=== PATIENT | female | born 1930 | race Caucasian/White ===

== ENCOUNTER 2017-10-23 17:56 | Observation (INO) ==
--- NOTE | 2017-10-23 18:47 | ED ---
HPI General Chief complaint: Weakness Stated complaint: weakness,confusion,nausea Time Seen by Provider: 10/23/17 18:35 Source: patient Mode of arrival: ambulatory Limitations: no limitations History of Present Illness HPI narrative: 87yo F with PMH of COPD on home O2 presents to the ED from Assisted living for generalized weakness since yesterday. Malena'ts friend who is the power of commercial real estate attorney also she she is more confused today. For example, pt called downstairs to order food and then called again and forgot she called. Said she walks with a walker and today felt too weak to walk. Denies any fever , headache, visual changes, chest pain, sob, n/v, abdominal pain, focal weakness or numbness. Related Data Home Medications Medication Instructions Recorded Confirmed albuterol sulfate [Ventolin HFA] 2 puff INHALATION Q4-6H PRN 10/23/17 10/23/17 amlodipine 5 mg PO DAILY 10/23/17 10/23/17 aspirin [Aspir-81] 81 mg PO DAILY 10/23/17 10/23/17 escitalopram oxalate [Lexapro] 10 mg PO DAILY 10/23/17 10/23/17 fluticasone furoate 2 inh INHALATION DAILY 10/23/17 10/23/17 lisinopril 10 mg PO DAILY 10/23/17 10/23/17 potassium chloride 10 10/23/17 torsemide 20 mg PO DAILY 10/23/17 10/23/17 Allergies Allergy/AdvReac Type Severity Reaction Status Date / Time clarithromycin Allergy Severe unknown Verified 10/23/17 18:06 codeine Allergy Severe unknown Verified 10/23/17 18:06 acetaminophen Allergy Unknown unknown Verified 10/23/17 18:06 cilostazol Allergy Unknown uknown Verified 10/23/17 18:06 enalaprilat Allergy Unknown unknown Verified 10/23/17 18:06 hydrocodone Allergy Unknown unknown Verified 10/23/17 18:06 propoxyphene Allergy Unknown unknown Verified 10/23/17 18:06 tramadol Allergy Unknown unknown Verified 10/23/17 18:06 Review of Systems ROS: all other systems reviewed are negative [facility] Medical History Medical History CAD (coronary artery disease) (Acute) COPD (chronic obstructive pulmonary disease) (Acute) High cholesterol (Acute) Hypertension (Acute) PVD (peripheral vascular disease) (Acute) Social History Social History Substance History: No History of Abuse Second Hand Smoke Exposure: No Smoking Status: Former smoker How Often Do You Have a Drink Containing Alcohol: Never Exam Narrative Exam Narrative: GENERAL: 87yo F in mild distress. SKIN: Focused skin assessment warm/dry. HEAD: Atraumatic. Normocephalic. EYES: Pupils equal and round. EOMI. ENT: No nasal bleeding or discharge. Mucous membranes pink and moist. NECK: Trachea midline. No JVD. CARDIOVASCULAR: Regular rate and rhythm. No murmur appreciated. RESPIRATORY: No accessory muscle use. Clear to auscultation. Breath sounds equal bilaterally. GASTROINTESTINAL: Abdomen soft, non-tender, nondistended. MUSCULOSKELETAL: No obvious deformities. No clubbing. No cyanosis. No edema. NEUROLOGICAL: Awake and alert. No obvious cranial nerve deficits. Motor grossly within normal limits in all extremities. Normal speech. PSYCHIATRIC: Appropriate mood and affect; insight and judgment normal. Course Initial Documented Vital Signs Temperature 99.5 F 10/23/17 18:06 Pulse Rate 74 10/23/17 18:06 Respiratory Rate 18 10/23/17 18:06 Blood Pressure 137/64 10/23/17 18:06 Pulse Oximetry 94 L 10/23/17 18:06 Last Documented Vital Signs Temperature 99.6 F 10/23/17 21:54 Pulse Rate 88 10/23/17 23:04 Respiratory Rate 18 10/23/17 23:04 Blood Pressure 178/85 H 10/23/17 23:04 Pulse Oximetry 96 10/23/17 23:04 Medical Decision Making [facility] Narrative Medical decision making narrative: 87yo F with c/o generalized weakness since yesterday. Labs reviewed, no leukocytosis. H/H normal. Troponin negative. BUN mildly elevated at 20. BUN/creatinine ratio is about 2:1 and pt likely dehydrated so given 500cc of NS IVF. CT brain showed aging brain with ventriculomegaly and chronic ischemic white matter disease causing central atrophy. No evidence of acute infarct, hemorrhage, mass or edema. UA showed trace ketones. Negative leukocyte, negative nitrate. Pt is unable to stand up unassisted and lives in the apartment side of the assisted living facility in [place] so will observe her overnight and have physical therapy evaluate patient. Discussed with Dr. Melendez and accepted to his service. Differential Diagnosis Differential Diagnosis: Dehydration vs. UTI vs. delirium vs. dementia Lab Data Result diagrams: 10/23/17 19:35 10/23/17 19:35 Lab Results 10/23/17 10/23/17 10/23/17 Range/Units 19:35 19:35 21:50 CBC w Diff Auto diff final WBC 10.8 (4.0-11.0) th/mm3 RBC 4.31 (4.00-5.30) mil/mm3 Hgb 13.2 (11.6-15.3) gm/dL Hct 39.1 (35.0-46.0) % MCV 90.7 (80.0-100.0) fL MCH 30.6 (27.0-34.0) pg MCHC 33.7 (32.0-36.0) % RDW 13.9 (11.6-17.2) % Plt Count 226 (150-450) th/mm3 MPV 8.1 (7.0-11.0) fL Neut % (Auto) 78.6 H (16.0-70.0) % Lymph % (Auto) 9.6 (9.0-44.0) % Harney % (Auto) 8.2 H (0.0-8.0) % Eos % (Auto) 0.7 (0.0-4.0) % Baso % (Auto) 2.9 H (0.0-2.0) % Neut # (Auto) 8.5 H (1.8-7.7) th/mm3 Lymph # (Auto) 1.0 (1.0-4.8) th/mm3 Harney # (Auto) 0.9 (0.0-0.9) th/mm3 Eos # (Auto) 0.1 (0.0-0.4) th/mm3 Baso # (Auto) 0.3 H (0.0-0.2) th/mm3 WBC Differential . Differential Comment . Sodium 138 (136-145) meq/L Potassium 3.7 (3.5-5.1) meq/L Chloride 102 (98-107) meq/L Carbon Dioxide 29.4 (21.0-32.0) meq/L Anion Gap 7 (5-15) meq/L BUN 20 H (7-18) mg/dL Creatinine 0.92 (0.50-1.00) mg/dL Estimated GFR 58 L (>89) mL/min Random Glucose 103 (74-106) mg/dL Calcium 8.4 L (8.5-10.1) mg/dL Magnesium 2.1 (1.5-2.5) mg/dL Total Bilirubin 0.9 (0.2-1.0) mg/dL AST 16 (15-37) U/L ALT 19 (10-53) U/L Alkaline Phosphatase 112 (45-117) U/L Troponin I Less than 0.02 L (0.02-0.05) ng/mL Total Protein 6.6 (6.4-8.2) g/dL Albumin 3.6 (3.4-5.0) g/dL Urine Color Yellow (Yellw/Straw) Urine Clarity Clear (Clear) Urine pH 5.5 (5.0-8.5) Ur Specific Kelford 1.010 (1.002-1.035) Urine Protein Negative (Neg-Trace) mg/dL Urine Glucose (UA) Negative (Negative) mg/dL Urine Ketones Trace H (Negative) mg/dL Urine Occult Blood Trace (Negative) Urine Nitrate Negative (Negative) Urine Bilirubin Negative (Negative) Urine Urobilinogen 0.2 (Less than 2) mg/dL Ur Leukocyte Esterase Negative (Negative) Urine RBC 0-3 (0-3) /hpf Urine WBC 0-5 (0-5) /hpf Ur Squamous Epith Cells 0-5 (0-5) /hpf Micro UA Comment Cath-culture not ind Urine Culture Comments Cath-cult not ind Imaging Data Radiologist's impression: Head CT 10/23/17 18:44 CONCLUSION: 1. Aging brain with ventriculomegaly and chronic ischemic white matter disease causing central atrophy 2. No evidence of acute infarct, hemorrhage, mass or edema. . ECG Data EKG Prior to Arrival: No Attestation: I personally reviewed and interpreted this ECG as follows: Interpretation: NSR 86bpm. LAD. No significant ST elevation or depression. Discharge Plan Discharge Disposition Patient Disposition: 30 Still Patient Physicians Team ED Provider: Bonnie Morales Primary Care Provider: Laurence Gillespie Attending Provider: lAan Melendez Status ED Status: Admitted Observation Patient
[2017-10-23 19:48] LABS: Baso # (Auto) 0.3 th/mm3 (0.0-0.2); Baso % (Auto) 2.9 % (0.0-2.0); Eos # (Auto) 0.1 th/mm3 (0.0-0.4); Eos % (Auto) 0.7 % (0.0-4.0); Hematocrit 39.1 % (35.0-46.0); Hemoglobin 13.2 gm/dL (11.6-15.3); Lymph % (Auto) 9.6 % (9.0-44.0); Mean Corpuscular HGB Conc 33.7 % (32.0-36.0); Mean Corpuscular Hemoglobin 30.6 pg (27.0-34.0); Mean Corpuscular Volume 90.7 fL (80.0-100.0); Mean Platelet Volume 8.1 fL (7.0-11.0); Mono # (Auto) 0.9 th/mm3 (0.0-0.9); Mono % (Auto) 8.2 % (0.0-8.0); Neut # (Auto) 8.5 th/mm3 (1.8-7.7); Neut % (Auto) 78.6 % (16.0-70.0); Platelet Count 226 th/mm3 (150-450); Red Blood Count 4.31 mil/mm3 (4.00-5.30); Red Cell Distribution Width 13.9 % (11.6-17.2); White Blood Count 10.8 th/mm3 (4.0-11.0)
[2017-10-23 19:52] LABS: Chloride 102 meq/L (98-107); Potassium 3.7 meq/L (3.5-5.1); Sodium 138 meq/L (136-145)
[2017-10-23 19:56] LABS: Albumin 3.6 g/dL (3.4-5.0); Anion Gap 7 meq/L (5-15); Blood Urea Nitrogen 20 mg/dL (7-18); Calcium 8.4 mg/dL (8.5-10.1); Carbon Dioxide 29.4 meq/L (21.0-32.0); Glucose,Random 103 mg/dL (74-106); Magnesium 2.1 mg/dL (1.5-2.5)
[2017-10-23 19:59] LABS: Alanine Aminotransferase 19 U/L (10-53); Aspartate Aminotransferase 16 U/L (15-37); Glomerular Filtration Rate 58 mL/min (>89)
[2017-10-23 20:01] LABS: Total Protein 6.6 g/dL (6.4-8.2)
[2017-10-23 20:02] LABS: Alkaline Phosphatase 112 U/L (45-117)
[2017-10-23] MEDS ORDERED: Sodium Chlor 0.9% Inj 500 ML IV.SIG ONE (20:02)
--- NOTE | 2017-10-23 20:15 | CT ---
EXAM DATE: 10/23/2017 8:10 PM EDT AGE/SEX: 87 years / Female INDICATIONS: Weakness, confusion, nausea. CLINICAL DATA: This is the patient's initial encounter. Patient reports that signs and symptoms have been present for 1 day and indicates a pain score of 0/10. MEDICAL/SURGICAL HISTORY: Chronic obstructive pulmonary disease. Cardiovascular disease. Hyperten veronika. High cholesterol, peripheral vascular disease. . RADIATION DOSE: 50.61 CTDI (mGy) COMPARISON: No prior exams available for comparison. TECHNIQUE: CT of the head without contrast. Using automated exposure control and adjustment of the mA and/or kV according to patient size, radiation dose was kept as low as reasonably achievable to ob tain optimal diagnostic quality images. DICOM format image data is available electronically for revi ew and comparison. FINDINGS: Cerebrum: Moderate enlargement of the ventricles is noted. There is diffuse generalized periventricu lar white matter hypodensity. Calcified plaque is identified internal carotid artery siphons. No evid ence of midline shift, mass lesion, hemorrhage or acute infarction. No extraaxial fluid collections are seen. Posterior Fossa: The cerebellum and brainstem are intact. The 4th ventricle is midline. The cerebe llopontine angle is unremarkable. Extracranial: The visualized portion of the orbits is intact. Skull: The calvaria is intact. No evidence of skull fracture. CONCLUSION: 1. Aging brain with ventriculomegaly and chronic ischemic white matter disease causing central atrop hy 2. No evidence of acute infarct, hemorrhage, mass or edema. . Electronically signed by: Herbert Hutson MD 10/23/2017 8:14 PM EDT
[2017-10-23 21:57] LABS: Bilirubin,Urine Negative (Negative); Clarity,Urine Clear (Clear); Color,Urine Yellow (Yellw/Straw); Glucose,Urine (UA) Negative (Negative); Leukocyte Esterase,Urine Negative (Negative); Nitrite,Urine Negative (Negative); PH,Urine 5.5 (5.0-8.5); Urobilinogen,Urine 0.2 mg/dL (Less than 2)
[2017-10-23 22:02] LABS: RBC,Urine 0-3 /hpf (0-3); Squamous Epithelial Cell,Urine 0-5 /hpf (0-5); WBC,Urine 0-5 /hpf (0-5)
[2017-10-23] MEDS ORDERED: Sod Chloride 0.9% Inj 1,000 ML IV.CONT SCH (22:45)
--- NOTE | 2017-10-24 06:14 | P.HP ---
History of Present Illness Service: [facility] Adult med Primary Care Physician: Laurence Gillespie MD Chief Complaint: weakness, confusion History of Present Illness: 87yo F with PMH of COPD on home O2 at 2 L per n/c presents to the ED from Assisted living for generalized weakness since yesterday. Patient's friend who is also the power of broodmare foreman reports that pt was a bit more confused as well. For example, pt called downstairs to order food and then called again and forgot she called. Said she walks with a walker and today felt too weak to walk. Denies any fever, headache, visual changes, chest pain, sob, n/v, abdominal pain, focal weakness or numbness. ER workup negative for focal etiology contributing to her weakness. Her mentation seems a bit better this AM on exam and near her baseline. I am familiar with pt from previous admission a few years ago. SH Patient resides in a local [facility] in the [facility] She is originally from [place] but moved to the area in the 1949s with her . No tobacco use since 1979 but prior to that smoked a pack per day for approximately 40 years. Has not drank any alcohol in many years. - Diagnosis (1) Weakness (2) COPD (chronic obstructive pulmonary disease) (3) Confusion (4) Hypertension [facility] - History History Provided By: Patient - Medical History Medical History: Medical History (Last Updated 10/24/17 @ 06:07 by lAan Melendez MD, PhD) CAD (coronary artery disease) COPD (chronic obstructive pulmonary disease) H/O: hysterectomy High cholesterol Hypertension PVD (peripheral vascular disease) - Surgical History Surgical History: Surgical History (Last Updated 10/24/17 @ 06:07 by Alan Melendez MD, PhD) History of PTCA History of appendectomy History of tonsillectomy Hx of cataract surgery Hx of cholecystectomy - Family History Family History: Family History (Last Updated 10/24/17 @ 06:07 by Alan Melendez MD, PhD) Other Family history non-contributory - Tobacco History Second Hand Smoke Exposure: No Smoking Status: Former smoker Tobacco Type: Cigarettes Packs Per Day: 1 Years Smoked: 40 Smoking End Date: 1979 - Alcohol History How Often Do You Have a Drink Containing Alcohol: Never - Substance Use History Substance History: No History of Abuse - Travel History Recent Travel in the [place] Within the Last 8 Weeks: No Recent Travel Out of the Country Within the Last 8 Weeks: No - Immunization History Tetanus Immunization: Unable to Assess Hx Influenza Vaccine This Season: Yes Medications and Allergies Active Medications: Active Medications Albuterol (Duoneb Neb (Prn)) 1 ampul NEB Q4HR NEB PRN PRN Reason: wheeze, sob Amlodipine Besylate (Norvasc) 5 mg PO DAILY WIN Aspirin (Ecotrin) 81 mg PO DAILY WIN Escitalopram Oxalate (Lexapro) 10 mg PO DAILY WIN Fluticasone Propionate (Flonase Nasal [place]) 2 spray NASAL DAILY WIN Sodium Chloride (Ns Inj) 1,000 mls @ 75 mls/hr IV.CONT .[id number] WIN Last Admin: 10/24/17 01:25 Dose: 75 mls/hr Sodium Chloride (Ns Flush) 2 ml IV.FLUSH PRN PRN PRN Reason: FLUSH AFTER USING IV ACCESS Allergies Allergy/AdvReac Type Severity Reaction Status Date / Time clarithromycin Allergy Severe unknown Verified 10/23/17 18:06 codeine Allergy Severe unknown Verified 10/23/17 18:06 acetaminophen Allergy Unknown unknown Verified 10/23/17 18:06 cilostazol Allergy Unknown uknown Verified 10/23/17 18:06 enalaprilat Allergy Unknown unknown Verified 10/23/17 18:06 hydrocodone Allergy Unknown unknown Verified 10/23/17 18:06 propoxyphene Allergy Unknown unknown Verified 10/23/17 18:06 tramadol Allergy Unknown unknown Verified 10/23/17 18:06 Home Medications Medication Instructions Recorded Confirmed Type albuterol sulfate [Ventolin HFA] 2 puff INHALATION Q4-6H PRN 10/23/17 10/23/17 History amlodipine 5 mg PO DAILY 10/23/17 10/23/17 History aspirin [Aspir-81] 81 mg PO DAILY 10/23/17 10/23/17 History escitalopram oxalate [Lexapro] 10 mg PO DAILY 10/23/17 10/23/17 History fluticasone furoate 2 inh INHALATION DAILY 10/23/17 10/23/17 History lisinopril 10 mg PO DAILY 10/23/17 10/23/17 History potassium chloride 10 10/23/17 History torsemide 20 mg PO DAILY 10/23/17 10/23/17 History Exam Vital signs: Vital Signs 10/23/17 18:06 10/23/17 18:50 10/23/17 21:54 Temperature 99.5 F 99.6 F Pulse Rate 74 68 80 Respiratory Rate 18 22 Blood Pressure 137/64 188/68 H Pulse Oximetry 94 L 94 L 95 10/23/17 22:15 10/23/17 22:33 10/23/17 23:04 Temperature Pulse Rate 72 88 Respiratory Rate 20 18 Blood Pressure 178/85 H Pulse Oximetry 95 96 96 10/24/17 00:15 Temperature 98.9 F Pulse Rate 74 Respiratory Rate 20 Blood Pressure 129/66 Pulse Oximetry 93 L Intake & Output 10/23/17 10/23/17 10/24/17 06:59 18:59 06:59 Intake Total 500 / 500 Output Total 200 / 200 Balance 300 / 300 Weight 72 kg 72 kg Intake: IV 500 / 500 NS Inj 500 ML @ Wide Open IV. 500 / 500 SIG BOLUS ONE Rx#:[id number] Output: Urine 200 / 200 Other: Date of Last Bowel Movement 10/23/17 Weight On Admission 78 kg Narrative: GENERAL: sleeping, arouses to voice. She is a bit groggy but is able to answer questions. She knows that she is in the hospital but is not sure which one. SKIN: Warm and dry. Purpuric lesions on forearms. HEAD: Atraumatic. Normocephalic. EYES: Pupils equal and round. No scleral icterus. No injection or drainage. ENT: No nasal bleeding or discharge. Mucous membranes pink and moist. NECK: Trachea midline. No JVD. CARDIOVASCULAR: Regular rate and rhythm. Distant heart sounds but no significant murmur appreciated. RESPIRATORY: No accessory muscle use. Clear to auscultation. No wheeze or fine crackles. Occasional cough with decreased breath sounds at the bases noted. GASTROINTESTINAL: Abdomen soft, non-tender, nondistended. Hepatic and splenic margins not palpable. MUSCULOSKELETAL: Extremities without clubbing, cyanosis, or edema. No obvious deformities. Moves all extremities to command. NEUROLOGICAL: Awake and alert but somewhat lethargic as it is quite early in the morning and she has been awake for much of the night. No obvious cranial nerve deficits. Motor grossly within normal limits. Normal speech. PSYCHIATRIC: Appropriate mood and affect. Results - Labs CBC & Chem 7: 10/23/17 19:35 10/23/17 19:35 Labs: Laboratory Results - last 24 hr 10/23/17 10/23/17 10/23/17 19:35 19:35 21:50 CBC w Diff Auto diff final WBC 10.8 RBC 4.31 Hgb 13.2 Hct 39.1 MCV 90.7 MCH 30.6 MCHC 33.7 RDW 13.9 Plt Count 226 MPV 8.1 Neut % (Auto) 78.6 H Lymph % (Auto) 9.6 Armstrong % (Auto) 8.2 H Eos % (Auto) 0.7 Baso % (Auto) 2.9 H Neut # (Auto) 8.5 H Lymph # (Auto) 1.0 Armstrong # (Auto) 0.9 Eos # (Auto) 0.1 Baso # (Auto) 0.3 H WBC Differential . Differential Comment . Sodium 138 Potassium 3.7 Chloride 102 Carbon Dioxide 29.4 Anion Gap 7 BUN 20 H Creatinine 0.92 Estimated GFR 58 L Random Glucose 103 Calcium 8.4 L Magnesium 2.1 Total Bilirubin 0.9 AST 16 ALT 19 Alkaline Phosphatase 112 Troponin I Less than 0.02 L Total Protein 6.6 Albumin 3.6 Urine Color Yellow Urine Clarity Clear Urine pH 5.5 Ur Specific Junior 1.010 Urine Protein Negative Urine Glucose (UA) Negative Urine Ketones Trace H Urine Occult Blood Trace Urine Nitrate Negative Urine Bilirubin Negative Urine Urobilinogen 0.2 Ur Leukocyte Esterase Negative Urine RBC 0-3 Urine WBC 0-5 Ur Squamous Epith Cells 0-5 Micro UA Comment Cath-culture not ind Urine Culture Comments Cath-cult not ind - Imaging Impressions Head CT 10/23/17 18:44 CONCLUSION: 1. Aging brain with ventriculomegaly and chronic ischemic white matter disease causing central atrophy 2. No evidence of acute infarct, hemorrhage, mass or edema. . Caprini VTE Risk Assessment Caprini VTE Risk Assessment: Moderate/High Risk (score >= 2) Caprini Risk Assessment Model: Point Value = 1 Point Value = 2 Point Value = 3 Point Value = 5 Age 41-60 Minor surgery BMI > 25 kg/m2 Swollen legs Varicose veins or History of unexplained or recurrent spontaneous Oral contraceptives or hormone replacement Sepsis (< 1 month) Serious lung disease, including pneumonia (< 1 month) Abnormal pulmonary function Acute myocardial infarction Congestive heart failure (< 1 month) History of inflammatory bowel disease Medical patient at bed rest Age 61-74 Arthroscopic surgery Major open surgery (> 45 min) Laparoscopic surgery (> 45 min) Malignancy Confined to bed (> 72 hours) Immobilizing plaster cast Central venous access Age >= 75 History of VTE Family history of VTE Factor V Leiden Prothrombin [id number] Lupus anticoagulant Anticardiolipin antibodies Elevated serum homocysteine Heparin-induced thrombocytopenia Other congenital or acquired thrombophilia Stroke (< 1 month) Elective arthroplasty Hip, pelvis, or leg fracture Acute spinal cord injury (< 1 month) Prophylaxis Regimen: Total Risk Factor Score Risk Level Prophylaxis Regimen 0-1 Low Early ambulation 2 Moderate Order ONE of the following: *Sequential Compression Device (SCD) *Heparin 5000 units SQ BID 3-4 Higher Order ONE of the following medications: *Heparin 5000 units SQ TID *Enoxaparin/Lovenox 40 mg SQ daily (WT < 150 kg, CrCl > 30 mL/min) *Enoxaparin/Lovenox 30 mg SQ daily (WT < 150 kg, CrCl > 10-29 mL/min) *Enoxaparin/Lovenox 30 mg SQ BID (WT < 150 kg, CrCl > 30 mL/min) AND/OR *Sequential Compression Device (SCD) 5 or more Highest Order ONE of the following medications: *Heparin 5000 units SQ TID (Preferred with Epidurals) *Enoxaparin/Lovenox 40 mg SQ daily (WT < 150 kg, CrCl > 30 mL/min) *Enoxaparin/Lovenox 30 mg SQ daily (WT < 150 kg, CrCl > 10-29 mL/min) *Enoxaparin/Lovenox 30 mg SQ BID (WT < 150 kg, CrCl > 30 mL/min) AND *Sequential Compression Device (SCD) Assessment and Plan - Assessment (1) Weakness Code(s): R53.1 - Weakness Status: Acute Plan: We will have physical therapy see the patient. No clear etiology revealed on studies thus far. Possibly just progression of underlying deconditioning. Hopefully can discharge up to rehab later today. (2) COPD (chronic obstructive pulmonary disease) Code(s): J44.9 - Chronic obstructive pulmonary disease, unspecified Status: Chronic Plan: She does have a bit of a cough and some decreased breath sounds in the bases on exam. I will check a chest x-ray. Continue nebulizers and supplemental oxygen. (3) Confusion Code(s): R41.0 - Disorientation, unspecified Status: Acute Plan: Mentation seems to be somewhat improved. (4) Hypertension Code(s): I10 - Essential (primary) hypertension Status: Acute Plan: Continue home medications as tolerated. (4) Hypertension Qualifiers: Hypertension type: essential hypertension Qualified Code(s): I10 - Essential (primary) hypertension
--- NOTE | 2017-10-24 07:13 | XR ---
EXAM DATE: 10/24/2017 7:05 AM EDT AGE/SEX: 87 years / Female INDICATIONS: . Shortness of breath CLINICAL DATA: This is the patient's initial encounter. Patient reports that signs and symptoms have been present for 1 day and indicates a pain score of 0/10. MEDICAL/SURGICAL HISTORY: . Chronic obstructive pulmonary disease. Cardiovascular disease. Hype rtension. None. COMPARISON: [facility], CHEST PA & LAT, 08/24/2011. . FINDINGS: The lungs are clear without infiltrate, nodule, or mass. There is no appreciable pleural effusion for technique. Heart and mediastinum are unremarkable. There is significant thoracolumbar scoliosis not significantly changed with multiple compression fractures of thoracic spine osteoporoti c. Some of them were present on the prior study from 2012, however some of them are new of indetermin ate age not adequately characterized. Multiple old rib fractures are seen on the left. CONCLUSION: No acute cardiopulmonary disease. 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 Electronically signed by: Arnoldo Greenberg MD 10/24/2017 7:11 AM EDT
[2017-10-24] MEDS ORDERED: FLUTICASONE FUROATE INHALATION SCH (09:00)
[2017-10-24] MEDS: Escitalopram 10 MG Tablet PO SCH (09:09)
[2017-10-24] MEDS: amLODIPine 5 MG Tablet PO SCH (09:09)
[2017-10-24] MEDS: Torsemide 20 MG Tablet PO SCH (09:13)
[2017-10-24] MEDS: Lisinopril 10 MG Tablet PO SCH (09:13)
--- NOTE | 2017-10-24 10:32 | P.PNADD ---
Addendum to Inpatient Note Reason for Addendum: Additional Documentation Additional information: Read over PT note. Pt agreeable to rehab and will try to get placed today. I informed pt's Vashti GOMEZ as well. Made president of the [place] aware so nurse will be on lookout for orders.
--- NOTE | 2017-10-24 16:16 | ECG ---
Date Performed: 10/23/2017 Time Performed: 18:52:24 PTAGE: 87 years EKG: Sinus rhythm Left anterior fasicular block. MARKED LEFT AXIS DEVIATION Consider anteroseptal MYOCARDIAL INFARCTIO N ABNORMAL ECG PREVIOUS TRACING : 02/19/2014 05.27 DOCTOR: Trey Pak Interpretating Date/Time 10/24/2017 16:14:16
--- NOTE | 2017-10-24 17:24 | P.PN ---
Subjective Interval history: Called to see patient was to go to rehab tonight had accidental fall no injury but did have low grade temp review of chest xray and labs show no significant changes will observe tonight,patient does have significant osteopenia and old fractures on review of xrays will xray tonight left shoulder ,temp possible related to stress from PT today . Physical Exam Vital signs: Vital Signs 10/23/17 18:06 10/23/17 18:50 10/23/17 21:54 Temperature 99.5 F 99.6 F Pulse Rate 74 68 80 Respiratory Rate 18 22 Blood Pressure 137/64 188/68 H Pulse Oximetry 94 L 94 L 95 10/23/17 22:15 10/23/17 22:33 10/23/17 23:04 Temperature Pulse Rate 72 88 Respiratory Rate 20 18 Blood Pressure 178/85 H Pulse Oximetry 95 96 96 10/24/17 00:15 10/24/17 07:30 10/24/17 08:00 Temperature 98.9 F 100.0 F H Pulse Rate 74 77 Respiratory Rate 20 18 Blood Pressure 129/66 149/60 H Pulse Oximetry 93 L 97 95 10/24/17 12:00 10/24/17 15:45 10/24/17 16:00 Temperature 98.3 F 98.5 F Pulse Rate 71 78 78 Respiratory Rate 18 Blood Pressure 146/93 H 136/76 Pulse Oximetry 95 10/24/17 16:32 Temperature Pulse Rate Respiratory Rate 18 Blood Pressure 141/71 H Pulse Oximetry Intake & Output 10/23/17 10/24/17 10/24/17 18:59 06:59 18:59 Intake Total 560 / 560 Output Total 200 / 200 Balance 360 / 360 Weight 72 kg 72.3 kg Intake: IV 500 / 500 NS Inj 500 ML @ Wide Open IV. 500 / 500 SIG BOLUS ONE Rx#:[id number] Oral 60 / 60 Output: Urine 200 / 200 Other: # Voids 2 Date of Last Bowel Movement 10/23/17 Weight On Admission 78 kg Narrative: GENERAL: SKIN: Warm and dry. HEAD: Normocephalic. EYES: No scleral icterus. No injection or drainage. NECK: Supple, trachea midline. No JVD or lymphadenopathy. CARDIOVASCULAR: Regular rate and rhythm without murmurs, gallops, or rubs. RESPIRATORY: Breath sounds equal bilaterally. No accessory muscle use. GASTROINTESTINAL: Abdomen soft, non-tender, nondistended. MUSCULOSKELETAL: No cyanosis, or edema. No pain on left arm BACK: Nontender without obvious deformity. No CVA tenderness. Results - Labs CBC & Chem 7: 10/23/17 19:35 10/23/17 19:35 Laboratory Results - last 24 hr 10/23/17 10/23/17 10/23/17 19:35 19:35 21:50 CBC w Diff Auto diff final WBC 10.8 RBC 4.31 Hgb 13.2 Hct 39.1 MCV 90.7 MCH 30.6 MCHC 33.7 RDW 13.9 Plt Count 226 MPV 8.1 Neut % (Auto) 78.6 H Lymph % (Auto) 9.6 [place] % (Auto) 8.2 H Eos % (Auto) 0.7 Baso % (Auto) 2.9 H Neut # (Auto) 8.5 H Lymph # (Auto) 1.0 [place] # (Auto) 0.9 Eos # (Auto) 0.1 Baso # (Auto) 0.3 H WBC Differential . Differential Comment . Sodium 138 Potassium 3.7 Chloride 102 Carbon Dioxide 29.4 Anion Gap 7 BUN 20 H Creatinine 0.92 Estimated GFR 58 L Random Glucose 103 Calcium 8.4 L Magnesium 2.1 Total Bilirubin 0.9 AST 16 ALT 19 Alkaline Phosphatase 112 Troponin I Less than 0.02 L Total Protein 6.6 Albumin 3.6 Urine Color Yellow Urine Clarity Clear Urine pH 5.5 Ur Specific [place] 1.010 Urine Protein Negative Urine Glucose (UA) Negative Urine Ketones Trace H Urine Occult Blood Trace Urine Nitrate Negative Urine Bilirubin Negative Urine Urobilinogen 0.2 Ur Leukocyte Esterase Negative Urine RBC 0-3 Urine WBC 0-5 Ur Squamous Epith Cells 0-5 Micro UA Comment Cath-culture not ind Urine Culture Comments Cath-cult not ind - Imaging Impressions Head CT 10/23/17 18:44 CONCLUSION: 1. Aging brain with ventriculomegaly and chronic ischemic white matter disease causing central atrophy 2. No evidence of acute infarct, hemorrhage, mass or edema. . Chest X-Ray 10/24/17 00:00 CONCLUSION: No acute cardiopulmonary disease. 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 Assessment and Plan - Assessment (1) Weakness Code(s): R53.1 - Weakness Status: Acute Plan: We will have physical therapy see the patient. No clear etiology revealed on studies thus far. Possibly just progression of underlying deconditioning. Hopefully can discharge up to rehab later today. (2) COPD (chronic obstructive pulmonary disease) Code(s): J44.9 - Chronic obstructive pulmonary disease, unspecified Status: Chronic Plan: She does have a bit of a cough and some decreased breath sounds in the bases on exam. I will check a chest x-ray. Continue nebulizers and supplemental oxygen. (3) Confusion Code(s): R41.0 - Disorientation, unspecified Status: Acute Plan: Mentation seems to be somewhat improved. (4) Hypertension Code(s): I10 - Essential (primary) hypertension Status: Acute Plan: Continue home medications as tolerated. (5) Fever Code(s): R50.9 - Fever, unspecified Status: Acute Plan: patient had low grade temp will hold discharge tonight follow temp ,labs and xray negative may get 1 set blood culture and can follow up at rehab center (6) Left shoulder strain Code(s): S46.912A - Strain of unspecified muscle, fascia and tendon at shoulder and upper arm level, left arm, initial encounter Status: Acute Plan: patient without pain exactly to shoulder will make sure no fracture with xray (4) Hypertension Qualifiers: Hypertension type: essential hypertension Qualified Code(s): I10 - Essential (primary) hypertension
--- NOTE | 2017-10-24 17:55 | XR ---
EXAM DATE: 10/24/2017 5:50 PM EDT AGE/SEX: 87 years / Female INDICATIONS: Left shoulder pain; fall today. CLINICAL DATA: This is the patient's initial encounter. Patient reports that signs and symptoms have been present for 1 day and indicates a pain score of 1/10. MEDICAL/SURGICAL HISTORY: None. None. COMPARISON: No prior exams available for comparison. FINDINGS: Bony structures are intact and in normal alignment. Joints are intact without dislocation or signifi cant arthropathy. Osseous density is decreased. Soft tissues are unremarkable. No radiopaque foreig n bodies seen. CONCLUSION: No acute findings. Electronically signed by: Isaac Rodriguez MD 10/24/2017 5:54 PM EDT
[2017-10-25 07:49] VITALS: TEMP 97; O2SAT 95
[2017-10-25] MEDS: Escitalopram 10 MG Tablet PO SCH (08:00)
[2017-10-25] MEDS: Lisinopril 10 MG Tablet PO SCH (08:00)
[2017-10-25] MEDS: amLODIPine 5 MG Tablet PO SCH (08:00)
[2017-10-25] MEDS: Torsemide 20 MG Tablet PO SCH (08:00)
--- NOTE | 2017-10-25 10:24 | P.DS ---
Date of admission: 10/23/17 22:24 Primary care physician: Laurence Gillespie MD Attending physician on discharge: Tomas Peters Anticipated date of discharge: 10/25/17 Brief History from admission: 87yo F with PMH of COPD on home O2 at 2 L per n/c presents to the ED from Assisted living for generalized weakness since yesterday. Patient's friend who is also the power of senior attorney reports that pt was a bit more confused as well. For example, pt called downstairs to order food and then called again and forgot she called. Said she walks with a walker and today felt too weak to walk. Denies any fever, headache, visual changes, chest pain, sob, n/v, abdominal pain, focal weakness or numbness. ER workup negative for focal etiology contributing to her weakness. Her mentation seems a bit better this AM on exam and near her baseline. I am familiar with pt from previous admission a few years ago. SH Patient resides in a local [facility] She is originally from [place] but moved to the area in the 1949s with her . No tobacco use since 1979 but prior to that smoked a pack per day for approximately 40 years. Has not drank any alcohol in many years. DS: Diagnosis - Discharge Diagnosis (1) Weakness Status: Acute (2) COPD (chronic obstructive pulmonary disease) Status: Chronic (3) Confusion Status: Acute (4) Hypertension Status: Acute (5) Fever Status: Acute (6) Left shoulder strain Status: Acute DS: Summary Hospital Course: Patient was admitted with copd on home oxygen and frequent falls generalized weakness with some skin tears from falling ,labs and xrays unremarkable and was to go to rehab last night but after therapy had low grade fever and fell on left shoulder. Xray of shoulder unremarkable and exam was normal ,also no further fever to be discharged to rehab today and i did order blood culture which i will follow up there. - Time Spent with Patient Total time spent providing and/or coordinating discharge services: Less than 30 minutes - Quality: VTE Deep Vein Thrombosis/Pulmonary Embolism Present on Admission: No Exam Vital signs: Vital Signs 10/24/17 12:00 10/24/17 15:45 10/24/17 16:00 Temperature 98.3 F 98.5 F Pulse Rate 71 78 78 Respiratory Rate 18 Blood Pressure 146/93 H 136/76 Pulse Oximetry 95 10/24/17 16:32 10/24/17 17:23 10/24/17 18:23 Temperature 98.8 F 98.2 F Pulse Rate 81 Respiratory Rate 18 Blood Pressure 141/71 H 144/67 H 138/70 Pulse Oximetry 95 10/24/17 19:40 10/24/17 20:00 10/25/17 00:00 Temperature 98.6 F 98.6 F Pulse Rate 102 H 65 Respiratory Rate 20 20 Blood Pressure 136/75 147/65 H Pulse Oximetry 95 98 96 10/25/17 07:48 10/25/17 08:55 10/25/17 08:57 Temperature 97 F L Pulse Rate 74 95 H Respiratory Rate 20 32 H Blood Pressure 163/70 H Pulse Oximetry 95 95 Intake & Output 10/24/17 10/25/17 10/25/17 18:59 06:59 18:59 Intake Total 1000 / 1000 120 / 120 Balance 1000 / 1000 120 / 120 Weight 70.4 kg Intake: IV 1000 / 1000 NS Inj 1,000 ML @ 75 mls/hr IV. 1000 / 1000 CONT .[id number] WIN Rx#: [id number] Oral 120 / 120 Other: # Voids 5 Date of Last Bowel Movement 10/24/17 Narrative: GENERAL: SKIN: Warm and dry.some skin tears upper extremities HEAD: Normocephalic. EYES: No scleral icterus. No injection or drainage. NECK: Supple, trachea midline. No JVD or lymphadenopathy. CARDIOVASCULAR: Regular rate and rhythm without murmurs, gallops, or rubs. RESPIRATORY: Breath sounds equal bilaterally. No accessory muscle use. GASTROINTESTINAL: Abdomen soft, non-tender, nondistended. MUSCULOSKELETAL: No cyanosis, or edema. BACK: Nontender without obvious deformity. No CVA tenderness. Results Procedures completed during hospitalization: xrays chest and shoulder - Impressions ITS Impressions Head CT 10/23/17 18:44 CONCLUSION: 1. Aging brain with ventriculomegaly and chronic ischemic white matter disease causing central atrophy 2. No evidence of acute infarct, hemorrhage, mass or edema. . Chest X-Ray 10/24/17 00:00 CONCLUSION: No acute cardiopulmonary disease. 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 Shoulder X-Ray 10/24/17 00:00 CONCLUSION: No acute findings. Discharge Plan - Discharge Disposition Patient Disposition: 03 Discharge to SNF - Discharge Condition Condition: Fair - Discharge Order Discharge Orders: Discharge Order (Routine); Ordered 10/24/17 Ordered By: Alan Melendez - Discharge Details Anticipated Discharge Date: 10/24/17 - Physicians Team Primary Care Provider: Laurence Gillespie Attending Provider: Alan Melendez
[2017-10-25 11:21] VITALS: BP 156/68; PULSE 78; RESP 20
== END 2017-10-25 11:46 ==
LOC: PHED 17:56 → PHEDA 17:56 → PH3 17:56
PROVIDERS: ADMIT Family Medicine; ATTEND Family Medicine
DX: I10 Essential (primary) hypertension; Z88.1 Allergy status to other antibiotic agents; M80.00XA Age-related osteoporosis with current pathological fracture, unspecified site, initial encounter for fracture; Z90.49 Acquired absence of other specified parts of digestive tract; W19.XXXA Unspecified fall, initial encounter; Z87.891 Personal history of nicotine dependence; Z98.61 Coronary angioplasty status; I73.9 Peripheral vascular disease, unspecified; Z99.81 Dependence on supplemental oxygen; R53.1 Weakness; E78.00 Pure hypercholesterolemia, unspecified; I25.10 Atherosclerotic heart disease of native coronary artery without angina pectoris; S46.912A Strain of unspecified muscle, fascia and tendon at shoulder and upper arm level, left arm, initial encounter; R94.31 Abnormal electrocardiogram [ECG] [EKG]; R29.6 Repeated falls; Z90.710 Acquired absence of both cervix and uterus; R41.0 Disorientation, unspecified; Z88.5 Allergy status to narcotic agent; J44.9 Chronic obstructive pulmonary disease, unspecified; G93.89 Other specified disorders of brain

== ENCOUNTER 2018-01-21 16:31 | Observation (INO) ==
--- NOTE | 2018-01-21 17:43 | XR ---
EXAM DATE: 01/21/2018 5:34 PM EST AGE/SEX: 88 years / Female INDICATIONS: Pain to lateral and medial sides of right knee. CLINICAL DATA: This is the patient's initial encounter. Patient reports that signs and symptoms have been present for 1 day and indicates a pain score of 10/10. MEDICAL/SURGICAL HISTORY: None. None. COMPARISON: . FINDINGS: A mildly depressed fracture is identified of the lateral tibial plateau. There is slight downward dis placement of the articulating surface. Fat fluid level is identified in the suprapatellar bursa. Femur and patella are intact. CONCLUSION: Mildly depressed fracture of the lateral tibial plateau with associated joint effusion. Electronically signed by: Herbert Htuson MD 01/21/2018 5:42 PM EST
--- NOTE | 2018-01-21 18:10 | ED ---
HPI General Chief Complaint: Extremity Injury, Lower Stated Complaint: R knee pain x 1330 Time Seen by Provider: 01/21/18 17:05 Source: patient Mode of arrival: ambulatory Limitations: no limitations History of Present Illness HPI Narrative: 88-year-old female here for evaluation of right knee pain. She reports while getting into a vehicle she felt a "crack" and had immediate right knee pain and inability to bear weight. She reports since that time the knee has began to swell. She has significant pain in the anterior aspect of the knee. Unable to bear weight. Denies altered sensation or weakness of the lower extremity. There was no head injury loss of consciousness. Pain is slightly relieved with rest. Related Data Home Medications Medication Instructions Recorded Confirmed albuterol sulfate [Ventolin HFA] 2 puff INHALATION Q4-6H PRN 10/23/17 01/21/18 amlodipine 5 mg PO DAILY 10/23/17 01/21/18 aspirin [Aspir-81] 81 mg PO DAILY 10/23/17 01/21/18 escitalopram oxalate [Lexapro] 10 mg PO DAILY 10/23/17 01/21/18 fluticasone furoate 2 inh INHALATION DAILY 10/23/17 01/21/18 lisinopril 10 mg PO DAILY 10/23/17 01/21/18 torsemide 10 mg PO DAILY 10/23/17 01/21/18 Previous Rx's Medication Instructions Recorded ipratropium-albuterol 1 amp NEB Q4HR NEB PRN ml 10/24/17 potassium chloride [Klor-Con 10] 10 meq PO BID tab 10/24/17 acetaminophen 500 mg PO Q6H PRN #30 cap 01/22/18 sennosides-docusate sodium [Senna 1 tab PO BID #30 tab 01/22/18 Plus] Allergies Allergy/AdvReac Type Severity Reaction Status Date / Time clarithromycin Allergy Severe unknown Verified 01/21/18 16:40 codeine Allergy Severe unknown Verified 01/21/18 16:40 acetaminophen Allergy Unknown unknown Verified 01/21/18 16:40 cilostazol Allergy Unknown uknown Verified 01/21/18 16:40 enalaprilat Allergy Unknown unknown Verified 01/21/18 16:40 hydrocodone Allergy Unknown unknown Verified 01/21/18 16:40 propoxyphene Allergy Unknown unknown Verified 01/21/18 16:40 tramadol Allergy Unknown unknown Verified 01/21/18 16:40 Review of Systems ROS: all other systems reviewed are negative [facility] Medical History Medical History Hypertension (Acute) CAD (coronary artery disease) (Acute) COPD (chronic obstructive pulmonary disease) (Acute) H/O: hysterectomy (Acute) High cholesterol (Acute) PVD (peripheral vascular disease) (Acute) Surgical History Surgical History History of PTCA (Acute) History of appendectomy (Acute) History of tonsillectomy (Acute) Hx of cataract surgery (Acute) Hx of cholecystectomy (Acute) Family History Family History Other Family history non-contributory Social History Social History Substance History: No History of Abuse Second Hand Smoke Exposure: No Smoking Status: Never smoker Tobacco Type: Cigarettes Packs Per Day: 1 Cigarettes Per Day: 20.0 Years Smoked: 40 Pack-Years: 40.00 Smoking End Date: 1979 How Often Do You Have a Drink Containing Alcohol: Never Recent Travel in [facility] within the Last 8 Weeks: No Recent Out of Country Travel within the Last 8 Weeks: No Immunization History Tetanus Immunization: Unsure Exam Narrative Exam Narrative: GENERAL: Well-nourished, well-developed patient. In mild distress with significant pain moving the right lower extremity. SKIN: Focused skin assessment warm/dry. HEAD: Normocephalic. Atraumatic EYES: No injection or drainage. NECK: Supple. No cervical midline tenderness CARDIOVASCULAR: Regular rate and rhythm RESPIRATORY: Breath sounds equal bilaterally. No accessory muscle use. GASTROINTESTINAL: Abdomen soft, non-tender, nondistended. MUSCULOSKELETAL: No cyanosis. RLE: Knee with joint effusion present. Acutely tender to the anterior aspect of the knee. Limited range of motion due to pain. Distal sensation intact. Cap refill intact. Palpable DP pulse. Course Initial Documented Vital Signs Temperature 99.1 F 01/21/18 16:40 Pulse Rate 76 01/21/18 16:40 Respiratory Rate 20 01/21/18 16:40 Blood Pressure 128/58 L 01/21/18 16:40 Pulse Oximetry 91 L 01/21/18 16:40 Last Documented Vital Signs Temperature 98.5 F 01/22/18 17:17 Pulse Rate 67 01/22/18 17:17 Respiratory Rate 16 01/22/18 17:17 Blood Pressure 141/65 H 01/22/18 17:17 Pulse Oximetry 98 01/22/18 17:17 Medical Decision Making MELANIE Attestation MELANIE supervised visit: Yes Attestation: I, Dr. Rashid, have reviewed the advance practice practitioner's documentation and am in agreement, met with the patient face to face, made the diagnosis, and the medical decision making was done by me. *My assessment and Findings: [-Patient is 88-year-old male with knee pain, was diagnosed with tibial plateau fracture, will be transferred to [facility] for admission and surgical treatment.] MDM Narrative Medical decision making narrative: 88-year-old female with right knee pain and inability to bear weight. X-ray reveal depressed fracture of the lateral tibial plateau and associated joint effusion 180: spoke to on-call orthopedist Dr. Guerrero who reports this will need surgical repair. knee Immobilizing splint. Admit to medicine. Requesting patient be transferred to the [facility] for planned surgery tomorrow. N.p.o. after midnight 1850: Spoke with [facility] hospitalist Dr. Solis who agrees to admit patient to their service. Medical Screen Exam Complete: Yes Emergency Medical Condition: Yes Differential Diagnosis Differential Diagnosis: Fracture, strain/sprain, contusion Lab Data Result diagrams: 01/22/18 04:23 01/22/18 04:23 Lab Results 01/22/18 01/22/18 01/22/18 Range/Units 04:23 04:23 04:23 WBC 6.2 (4.0-11.0) th/mm3 RBC 4.32 (4.00-5.30) mil/mm3 Hgb 13.3 (11.6-15.3) gm/dL Hct 40.0 (35.0-46.0) % MCV 92.7 (80.0-100.0) fL MCH 30.8 (27.0-34.0) pg MCHC 33.2 (32.0-36.0) % RDW 12.9 (11.6-17.2) % Plt Count 176 (150-450) th/mm3 MPV 7.6 (7.0-11.0) fL Neut % (Auto) 68.6 (16.0-70.0) % Lymph % (Auto) 16.3 (9.0-44.0) % [place] % (Auto) 13.1 H (0.0-8.0) % Eos % (Auto) 1.1 (0.0-4.0) % Baso % (Auto) 0.9 (0.0-2.0) % Neut # (Auto) 4.3 (1.8-7.7) th/mm3 Lymph # (Auto) 1.0 (1.0-4.8) th/mm3 [place] # (Auto) 0.8 (0.0-0.9) th/mm3 Eos # (Auto) 0.1 (0.0-0.4) th/mm3 Baso # (Auto) 0.1 (0.0-0.2) th/mm3 WBC Differential . Differential Comment Auto diff final PT (9.8-11.6) sec INR Ratio APTT 27.5 (23.4-31.7) sec Sodium 141 (136-145) meq/L Potassium 3.9 (3.5-5.1) meq/L Chloride 106 (98-107) meq/L Carbon Dioxide 29.1 (21.0-32.0) meq/L Anion Gap 6 (5-15) meq/L BUN 18 (7-18) mg/dL Creatinine 0.85 (0.50-1.00) mg/dL Estimated GFR 63 L (>89) mL/min Random Glucose 95 (74-106) mg/dL Calcium 8.4 L (8.5-10.1) mg/dL 01/22/18 Range/Units 04:23 WBC (4.0-11.0) th/mm3 RBC (4.00-5.30) mil/mm3 Hgb (11.6-15.3) gm/dL Hct (35.0-46.0) % MCV (80.0-100.0) fL MCH (27.0-34.0) pg MCHC (32.0-36.0) % RDW (11.6-17.2) % Plt Count (150-450) th/mm3 MPV (7.0-11.0) fL Neut % (Auto) (16.0-70.0) % Lymph % (Auto) (9.0-44.0) % [place] % (Auto) (0.0-8.0) % Eos % (Auto) (0.0-4.0) % Baso % (Auto) (0.0-2.0) % Neut # (Auto) (1.8-7.7) th/mm3 Lymph # (Auto) (1.0-4.8) th/mm3 [place] # (Auto) (0.0-0.9) th/mm3 Eos # (Auto) (0.0-0.4) th/mm3 Baso # (Auto) (0.0-0.2) th/mm3 WBC Differential Differential Comment PT 10.7 (9.8-11.6) sec INR 1.1 Ratio APTT (23.4-31.7) sec Sodium (136-145) meq/L Potassium (3.5-5.1) meq/L Chloride (98-107) meq/L Carbon Dioxide (21.0-32.0) meq/L Anion Gap (5-15) meq/L BUN (7-18) mg/dL Creatinine (0.50-1.00) mg/dL Estimated GFR (>89) mL/min Random Glucose (74-106) mg/dL Calcium (8.5-10.1) mg/dL Imaging Data Radiologist's impression: Chest X-Ray 01/21/18 00:00 CONCLUSION: Mild bibasilar atelectasis without perceptible pneumonia. Knee X-Ray 01/21/18 17:16 CONCLUSION: Mildly depressed fracture of the lateral tibial plateau with associated joint effusion. Knee CT 01/22/18 07:12 CONCLUSION: 1. Depressed lateral tibial plateau fracture. 2. Chondrocalcinosis. Discharge Plan Discharge Disposition Patient Disposition: 30 Still Patient Discharge Condition Condition: Stable Discharge Order Discharge Orders: Discharge Order (Routine); Ordered 01/22/18 Ordered By: Angela Starks Discharge Details Anticipated Discharge Date: 01/22/18 Discharge Comment: Non Weight bearing RLE Diagnosis: Fracture of tibial plateau Physicians Team ED Provider: Ming Rashid ED Midlevel Provider: Ronit Alfred Primary Care Provider: Laurence Gillespie Attending Provider: Kevin Solis Other Providers: [facility],Agency ; [facility],[place] Status ED Status: Left Department Discharge Information Discharge Date/Time: 01/21/18 21:33
--- NOTE | 2018-01-21 19:24 | XR ---
EXAM DATE: 01/21/2018 7:09 PM EST AGE/SEX: 88 years / Female INDICATIONS: Cough. CLINICAL DATA: This is the patient's initial encounter. Patient reports that signs and symptoms have been present for 1 day and indicates a pain score of 0/10. MEDICAL/SURGICAL HISTORY: Chronic obstructive pulmonary disease. Cardiovascular disease. Hype rtension. None. COMPARISON: [facility], CHEST 2V AP&LAT, 10/24/2017. . FINDINGS: Trace atelectasis of both bases. No pneumonic infiltrate seen. No pleural effusion or pneumothorax. Heart size stable, within normal limits. Very tortuous thoracic aorta again seen. There is moderate S shaped thoracolumbar curvature. CONCLUSION: Mild bibasilar atelectasis without perceptible pneumonia. Electronically signed by: Davide Baer MD 01/21/2018 7:23 PM EST
[2018-01-22 04:33] LABS: Baso # (Auto) 0.1 th/mm3 (0.0-0.2); Baso % (Auto) 0.9 % (0.0-2.0); Eos # (Auto) 0.1 th/mm3 (0.0-0.4); Eos % (Auto) 1.1 % (0.0-4.0); Hemoglobin 13.3 gm/dL (11.6-15.3); Lymph % (Auto) 16.3 % (9.0-44.0); Mean Corpuscular HGB Conc 33.2 % (32.0-36.0); Mean Corpuscular Hemoglobin 30.8 pg (27.0-34.0); Mean Corpuscular Volume 92.7 fL (80.0-100.0); Mean Platelet Volume 7.6 fL (7.0-11.0); Mono # (Auto) 0.8 th/mm3 (0.0-0.9); Mono % (Auto) 13.1 % (0.0-8.0); Neut # (Auto) 4.3 th/mm3 (1.8-7.7); Neut % (Auto) 68.6 % (16.0-70.0); Platelet Count 176 th/mm3 (150-450); Red Blood Count 4.32 mil/mm3 (4.00-5.30); Red Cell Distribution Width 12.9 % (11.6-17.2); White Blood Count 6.2 th/mm3 (4.0-11.0)
[2018-01-22 04:41] LABS: INR 1.1 Ratio; Prothrombin Time 10.7 sec (9.8-11.6)
[2018-01-22] MEDS ORDERED: Sodium Chlor 0.9% Inj 500 ML IV.CONT ONE (04:45)
[2018-01-22] MEDS ORDERED: Chlorhexidine Gluconate 2% 1 Pack (2 Cloths) TOPICAL ONE (04:45)
[2018-01-22 05:06] LABS: Calcium 8.4 mg/dL (8.5-10.1); Carbon Dioxide 29.1 meq/L (21.0-32.0); Potassium 3.9 meq/L (3.5-5.1)
[2018-01-22] MEDS: KCL 20 mEq/NACL 0.45% Inj 1,000 ML IV.CONT SCH ×2 (07:27→07:31)
[2018-01-22] MEDS: Senna/Docusate Sodium 8.6/50 MG Tablet PO SCH ×2 (07:28→08:47)
--- NOTE | 2018-01-22 08:11 | CT ---
EXAM DATE: 01/22/2018 8:01 AM EST AGE/SEX: 88 years / Female INDICATIONS: Evaluate fracture CLINICAL DATA: This is the patient's initial encounter. Patient reports that signs and symptoms have been present for 1 day and indicates a pain score of 8/10. MEDICAL/SURGICAL HISTORY: Cardiovascular disease. Hypertension. Chronic obstructive pulmonary dis ease. Appendectomy. Cholecystectomy. Hysterectomy. RADIATION DOSE: 18.22 CTDI (mGy) COMPARISON: No prior exams available for comparison. TECHNIQUE: Multiple contiguous axial images were acquired using a multirow detector CT scanner witho ut contrast. Multiplanar reconstruction was performed in the sagittal and coronal planes. Using aut omated exposure control and adjustment of the mA and/or kV according to patient size, radiation dose was kept as low as reasonably achievable to obtain optimal diagnostic quality images. DICOM format i mage data is available electronically for review and comparison. FINDINGS: Joint effusion is present. There is slight degree of subcutaneous edema most likely traumatic contusi on. There is a depressed lateral tibial plateau fracture by approximately 5 to 6 mm and the fracture extends to the level of the tibial spine medially. Chondrocalcinosis is seen within medial lateral co mpartments. Bony structures are osteopenic. CONCLUSION: 1. Depressed lateral tibial plateau fracture. 2. Chondrocalcinosis. Electronically signed by: Arnoldo Greenberg MD 01/22/2018 8:09 AM EST
[2018-01-22] MEDS ORDERED: amLODIPine 5 MG Tablet PO SCH (09:00)
[2018-01-22] MEDS ORDERED: Escitalopram 10 MG Tablet PO SCH (09:00)
--- NOTE | 2018-01-22 09:08 | P.PNOP ---
Subjective Interval history: Admitted with right lateral tibial plateau fracture. Full note to follow Physical Exam Vital signs: Vital Signs 01/21/18 16:40 01/21/18 17:06 01/21/18 19:42 Temperature 99.1 F Pulse Rate 76 72 78 Respiratory Rate 20 18 16 Blood Pressure 128/58 L 132/63 133/70 Pulse Oximetry 91 L 96 97 01/21/18 20:27 01/21/18 21:55 01/22/18 00:00 Temperature 98.8 F 98.6 F Pulse Rate 80 93 H 70 Respiratory Rate 16 20 20 Blood Pressure 136/77 169/72 H Pulse Oximetry 93 L 92 L 01/22/18 04:00 Temperature 99.2 F Pulse Rate 72 Respiratory Rate 19 Blood Pressure 157/70 H Pulse Oximetry 93 L Intake & Output 01/21/18 01/22/18 01/22/18 18:59 06:59 18:59 Output Total 250 / 250 Balance -250 / -250 Weight 79 kg 79 kg Output: Urine 250 / 250 Other: # Incontinent Voids 1 Results - Labs CBC & Chem 7: 01/22/18 04:23 01/22/18 04:23 Laboratory Results - last 24 hr 01/22/18 01/22/18 01/22/18 04:23 04:23 04:23 WBC 6.2 RBC 4.32 Hgb 13.3 Hct 40.0 MCV 92.7 MCH 30.8 MCHC 33.2 RDW 12.9 Plt Count 176 MPV 7.6 Neut % (Auto) 68.6 Lymph % (Auto) 16.3 [place] % (Auto) 13.1 H Eos % (Auto) 1.1 Baso % (Auto) 0.9 Neut # (Auto) 4.3 Lymph # (Auto) 1.0 [place] # (Auto) 0.8 Eos # (Auto) 0.1 Baso # (Auto) 0.1 WBC Differential . Differential Comment Auto diff final PT INR APTT 27.5 Sodium 141 Potassium 3.9 Chloride 106 Carbon Dioxide 29.1 Anion Gap 6 BUN 18 Creatinine 0.85 Estimated GFR 63 L Random Glucose 95 Calcium 8.4 L 01/22/18 04:23 WBC RBC Hgb Hct MCV MCH MCHC RDW Plt Count MPV Neut % (Auto) Lymph % (Auto) [place] % (Auto) Eos % (Auto) Baso % (Auto) Neut # (Auto) Lymph # (Auto) [place] # (Auto) Eos # (Auto) Baso # (Auto) WBC Differential Differential Comment PT 10.7 INR 1.1 APTT Sodium Potassium Chloride Carbon Dioxide Anion Gap BUN Creatinine Estimated GFR Random Glucose Calcium - Imaging Impressions Chest X-Ray 01/21/18 00:00 CONCLUSION: Mild bibasilar atelectasis without perceptible pneumonia. Knee X-Ray 01/21/18 17:16 CONCLUSION: Mildly depressed fracture of the lateral tibial plateau with associated joint effusion. Knee CT 01/22/18 07:12 CONCLUSION: 1. Depressed lateral tibial plateau fracture. 2. Chondrocalcinosis. Assessment and Plan - Assessment and Plan Fracture right lateral tibial plateau, depressed. PLAN: I reviewed the CT of the right leg. It looks better than the original x-ray. Clinically her alignment looks fine. She mostly has a posterior depression but overall I think she has a good chance of doing well without surgical care. Nonsurgical treatment. Knee immobilizer. Nonweightbearing right leg. Follow-up in approximately 2 weeks. Repeat x-ray at that time. Delayed fixation may be necessary if this subsides further. I doubt that will happen. I discussed this with the nurse. She can be regular diet. Discharge plans can be initiated
--- NOTE | 2018-01-22 09:49 | P.HPIM ---
History of Present Illness Primary Care Physician: Laurence Gillespie MD Chief Complaint: fall unable to bear weight History of Present Illness: This an 88-year-old female patient with past medical history which includes mild cognitive impairment, COPD, depression and peripheral vascular disease. Patient presented to [facility] for evaluation of right knee pain. She reports while getting into a vehicle she felt a "crack" and had immediate right knee pain and inability to bear weight. She reports since that time the knee has began to swell. She has significant pain in the anterior aspect of the knee. Unable to bear weight. Denies altered sensation or weakness of the lower extremity. There was no head injury loss of consciousness. Pain is slightly relieved with rest. PMH: mild cognitive impairment, COPD, depression and peripheral vascular disease PSxH: Appendectomy, cataract surgery, cholecystectomy, bunionectomy, hysterectomy, surgical repair of jaw, cardiac stent placement, tonsils and adenoidectomy, surgical repair of wrist fracture Inpatient Certification Inpatient Certification: I certify that the inpatient services were ordered in accordance with Medicare regulations governing the order. This includes certification that hospital inpatient services are reasonable and necessary and in the case of services not specified as inpatient-only under 42 CFR 419.22(n), that they are appropriately provided as inpatient services in accordance to with the 2-midnight benchmark under 43 CFR 412.3(e) Estimated Total Length of Stay (Days): 3 Plans for Post Hospital Care: Not yet determined Medications and Allergies Allergies Allergy/AdvReac Type Severity Reaction Status Date / Time clarithromycin Allergy Severe unknown Verified 01/21/18 16:40 codeine Allergy Severe unknown Verified 01/21/18 16:40 acetaminophen Allergy Unknown unknown Verified 01/21/18 16:40 cilostazol Allergy Unknown uknown Verified 01/21/18 16:40 enalaprilat Allergy Unknown unknown Verified 01/21/18 16:40 hydrocodone Allergy Unknown unknown Verified 01/21/18 16:40 propoxyphene Allergy Unknown unknown Verified 01/21/18 16:40 tramadol Allergy Unknown unknown Verified 01/21/18 16:40 Home Medications Medication Instructions Recorded Confirmed Type albuterol sulfate [Ventolin HFA] 2 puff INHALATION Q4-6H PRN 10/23/17 01/21/18 History amlodipine 5 mg PO DAILY 10/23/17 01/21/18 History aspirin [Aspir-81] 81 mg PO DAILY 10/23/17 01/21/18 History escitalopram oxalate [Lexapro] 10 mg PO DAILY 10/23/17 01/21/18 History fluticasone furoate 2 inh INHALATION DAILY 10/23/17 01/21/18 History lisinopril 10 mg PO DAILY 10/23/17 01/21/18 History torsemide 10 mg PO DAILY 10/23/17 01/21/18 History Active Medications: Active Medications Al Hydroxide/Mg Hydroxide (Milk Of Marcello Oakes) 30 ml PO Q12H PRN PRN Reason: Mild Constipation Albuterol (Duoneb Neb (Prn)) 1 ampul NEB Q2HR NEB PRN PRN Reason: SHORTNESS OF BREATH/WHEEZING Amlodipine Besylate (Norvasc) 5 mg PO DAILY [facility] Last Admin: 01/22/18 08:47 Dose: 5 mg Aspirin (Ecotrin) 81 mg PO DAILY [facility] Last Admin: 01/22/18 08:48 Dose: 81 mg Clonidine HCl (Catapres) 0.2 mg PO Q6H PRN PRN Reason: SBP>160, DBP>90 Escitalopram Oxalate (Lexapro) 10 mg PO DAILY [facility] Last Admin: 01/22/18 08:47 Dose: 10 mg Fluticasone Propionate (Flovent Hfa 110 Mcg Inh) 2 puff INH DAILY [facility] Potassium Chloride/Sodium Chloride (Potassium Chlor 20 Meq/Nacl 0.45% Inj) 1, 000 mls @ 84 mls/hr IV.CONT .[id number] [facility] Stop: 01/22/18 19:03 Last Admin: 01/22/18 07:31 Dose: 84 mls/hr Lactated Ringer's (Lr 1000 Ml Inj) 1,000 mls @ 30 mls/hr IV.CONT .Q24H ONE Stop: 01/23/18 04:44 Sodium Chloride (Ns Inj) 500 mls @ 30 mls/hr IV.CONT .[id number] ONE Stop: 01/22/18 21:24 Ondansetron HCl (Zofran Inj) 4 mg IV.PUSH Q6H PRN PRN Reason: NAUSEA OR VOMITING Senna/Docusate Sodium (Silvia-Colace) 1 tab PO BID [facility] Last Admin: 01/22/18 08:47 Dose: 1 tab Physical Exam Vital signs: Last Vital Signs Temp 100.2 F H 01/22/18 08:00 Pulse 73 01/22/18 08:00 Resp 19 01/22/18 08:00 BP 152/67 H 01/22/18 08:00 Pulse Ox 92 L 01/22/18 08:00 Narrative: GENERAL: This is a well-nourished, well-developed patient, in no apparent distress. CARDIOVASCULAR: Regular rate and rhythm RESPIRATORY: Clear to auscultation. Breath sounds equal bilaterally. GASTROINTESTINAL: Abdomen soft, non-tender, nondistended. Normal active bowel sounds MUSCULOSKELETAL: Extremities without clubbing, cyanosis, or edema. NEURO: Alert & Oriented. Moves all ext x4 Results Labs CBC & Chem 7: 01/22/18 04:23 01/22/18 04:23 Caprini VTE Risk Assessment Caprini VTE Risk Assessment: Moderate/High Risk (score >= 2) Caprini Risk Assessment Model: Point Value = 1 Point Value = 2 Point Value = 3 Point Value = 5 Age 41-60 Minor surgery BMI > 25 kg/m2 Swollen legs Varicose veins or History of unexplained or recurrent spontaneous Oral contraceptives or hormone replacement Sepsis (< 1 month) Serious lung disease, including pneumonia (< 1 month) Abnormal pulmonary function Acute myocardial infarction Congestive heart failure (< 1 month) History of inflammatory bowel disease Medical patient at bed rest Age 61-74 Arthroscopic surgery Major open surgery (> 45 min) Laparoscopic surgery (> 45 min) Malignancy Confined to bed (> 72 hours) Immobilizing plaster cast Central venous access Age >= 75 History of VTE Family history of VTE Factor V Leiden Prothrombin [id number] Lupus anticoagulant Anticardiolipin antibodies Elevated serum homocysteine Heparin-induced thrombocytopenia Other congenital or acquired thrombophilia Stroke (< 1 month) Elective arthroplasty Hip, pelvis, or leg fracture Acute spinal cord injury (< 1 month) Prophylaxis Regimen: Total Risk Factor Score Risk Level Prophylaxis Regimen 0-1 Low Early ambulation 2 Moderate Order ONE of the following: *Sequential Compression Device (SCD) *Heparin 5000 units SQ BID 3-4 Higher Order ONE of the following medications: *Heparin 5000 units SQ TID *Enoxaparin/Lovenox 40 mg SQ daily (WT < 150 kg, CrCl > 30 mL/min) *Enoxaparin/Lovenox 30 mg SQ daily (WT < 150 kg, CrCl > 10-29 mL/min) *Enoxaparin/Lovenox 30 mg SQ BID (WT < 150 kg, CrCl > 30 mL/min) AND/OR *Sequential Compression Device (SCD) 5 or more Highest Order ONE of the following medications: *Heparin 5000 units SQ TID (Preferred with Epidurals) *Enoxaparin/Lovenox 40 mg SQ daily (WT < 150 kg, CrCl > 30 mL/min) *Enoxaparin/Lovenox 30 mg SQ daily (WT < 150 kg, CrCl > 10-29 mL/min) *Enoxaparin/Lovenox 30 mg SQ BID (WT < 150 kg, CrCl > 30 mL/min) AND *Sequential Compression Device (SCD) Assessment and Plan Plan This an 88-year-old female patient with past medical history which includes mild cognitive impairment, COPD, depression and peripheral vascular disease. Patient presented to [facility] for evaluation of right knee pain. She reports while getting into a vehicle she felt a "crack" and had immediate right knee pain and inability to bear weight. She reports since that time the knee has began to swell. She has significant pain in the anterior aspect of the knee. Unable to bear weight. Denies altered sensation or weakness of the lower extremity. There was no head injury loss of consciousness. Pain is slightly relieved with rest. Right Tibial Plateau fracture Chest X-Ray 01/21/18 Mild bibasilar atelectasis without perceptible pneumonia. Knee X-Ray 01/21/18 Mildly depressed fracture of the lateral tibial plateau with associated joint effusion. Knee CT 01/22/18 1. Depressed lateral tibial plateau fracture. 2. Chondrocalcinosis. Consult orthopedic surgery- Orthopedic surgery feels fracture does not requir surgery and has cleared patient for DC mild cognitive impairment, COPD, depression and peripheral vascular disease Continue home medication as indicated Dr Solis discussed case with pt and pts JASON Mcmullen Plan to DC to SNF in stable condition on a hearth healthy diet, non weight bearing RLE. Patient to follow up with PCP in 1 week and Orthopedic surgery in 2 weeks H&P: Quality VTE Deep Vein Thrombosis/Pulmonary Embolism Present on Admission: No
--- NOTE | 2018-01-22 11:22 | ECG ---
Date Performed: 01/21/2018 Time Performed: 19:15:09 PTAGE: 88 years EKG: Sinus rhythm MARKED LEFT AXIS DEVIATION LOW QRS VOLTAGE IN PRECORDIAL LEADS POSSIBLE ANTERIOR MYOCARDIAL INFARCTI ON Nonspecific T wave changes Compared to previous tracing nonspecific T wave changes are now present ABNORMAL ECG PREVIOUS TRACING : 10/23/2017 18.52 DOCTOR: Drew Wang Interpretating Date/Time 01/22/2018 11:22:08
--- NOTE | 2018-01-22 11:42 | P.DS ---
DS: Providers Date of admission: 01/21/18 19:10 Primary care physician: Laurence Gillespie MD DS: Diagnosis Discharge Diagnosis (1) Fracture of tibial plateau: Status: Acute DS: Summary This an 88-year-old female patient with past medical history which includes mild cognitive impairment, COPD, depression and peripheral vascular disease. Patient presented to [place] ER for evaluation of right knee pain. She reports while getting into a vehicle she felt a "crack" and had immediate right knee pain and inability to bear weight. She reports since that time the knee has began to swell. She has significant pain in the anterior aspect of the knee. Unable to bear weight. Denies altered sensation or weakness of the lower extremity. There was no head injury loss of consciousness. Pain is slightly relieved with rest. Right Tibial Plateau fracture Chest X-Ray 01/21/18 Mild bibasilar atelectasis without perceptible pneumonia. Knee X-Ray 01/21/18 Mildly depressed fracture of the lateral tibial plateau with associated joint effusion. Knee CT 01/22/18 1. Depressed lateral tibial plateau fracture. 2. Chondrocalcinosis. Consult orthopedic surgery- Orthopedic surgery feels fracture does not requir surgery and has cleared patient for DC mild cognitive impairment, COPD, depression and peripheral vascular disease Continue home medication as indicated Plan to DC to SNF in stable condition on a hearth healthy diet, non weight bearing RLE. Patient to follow up with PCP in 1 week and Orthopedic surgery in 2 weeks case discussed with pt and pts JASON Mcmullen Time Spent with Patient Total time spent providing and/or coordinating discharge services: Quality: VTE Deep Vein Thrombosis/Pulmonary Embolism Present on Admission: No Exam Narrative Exam Narrative: GENERAL: This is a well-nourished, well-developed patient, in no apparent distress. CARDIOVASCULAR: Regular rate and rhythm RESPIRATORY: Clear to auscultation. Breath sounds equal bilaterally. GASTROINTESTINAL: Abdomen soft, non-tender, nondistended. Normal active bowel sounds MUSCULOSKELETAL: Extremities without clubbing, cyanosis, or edema. NEURO: Alert & Oriented. Moves all ext x4 DS: Data Labs on day of discharge: Labs from last 24 hours 01/22/18 01/22/18 01/22/18 04:23 04:23 04:23 WBC RBC Hgb Hct MCV MCH MCHC RDW Plt Count MPV Neut % (Auto) Lymph % (Auto) [place] % (Auto) Eos % (Auto) Baso % (Auto) Neut # (Auto) Lymph # (Auto) [place] # (Auto) Eos # (Auto) Baso # (Auto) WBC Differential Differential Comment PT 10.7 INR 1.1 APTT 27.5 Sodium 141 Potassium 3.9 Chloride 106 Carbon Dioxide 29.1 Anion Gap 6 BUN 18 Creatinine 0.85 Estimated GFR 63 L Random Glucose 95 Calcium 8.4 L 01/22/18 04:23 WBC 6.2 RBC 4.32 Hgb 13.3 Hct 40.0 MCV 92.7 MCH 30.8 MCHC 33.2 RDW 12.9 Plt Count 176 MPV 7.6 Neut % (Auto) 68.6 Lymph % (Auto) 16.3 [place] % (Auto) 13.1 H Eos % (Auto) 1.1 Baso % (Auto) 0.9 Neut # (Auto) 4.3 Lymph # (Auto) 1.0 [place] # (Auto) 0.8 Eos # (Auto) 0.1 Baso # (Auto) 0.1 WBC Differential . Differential Comment Auto diff final PT INR APTT Sodium Potassium Chloride Carbon Dioxide Anion Gap BUN Creatinine Estimated GFR Random Glucose Calcium Impressions Chest X-Ray 01/21/18 00:00 CONCLUSION: Mild bibasilar atelectasis without perceptible pneumonia. Knee X-Ray 01/21/18 17:16 CONCLUSION: Mildly depressed fracture of the lateral tibial plateau with associated joint effusion. Knee CT 01/22/18 07:12 CONCLUSION: 1. Depressed lateral tibial plateau fracture. 2. Chondrocalcinosis. Discharge Plan Discharge Disposition Patient Disposition: Discharge to SNF Discharge Condition Condition: Stable Discharge Order Discharge Orders: Discharge Order (Routine); Ordered 01/22/18 Ordered By: Angela Starks [facility]astroenter[facility] Clear for Discharge (Routine); Ordered 01/22/18 Ordered By: Angela Starks Discharge Details Anticipated Discharge Date: 01/22/18 Discharge Comment: Non Weight bearing RLE Physicians Team ED Provider: Ming Rashid ED Midlevel Provider: Ronit Alfred Primary Care Provider: Laurence Gillespie Attending Provider: Kevin Solis Rxs /Orders / Referrals /Forms Prescriptions: New sennosides-docusate sodium [Senna Plus] 8.6-50 mg Tablet 1 tab PO BID Qty: 30 RF: 0 Continue torsemide 20 mg Tablet 10 mg PO DAILY RF: 0 amlodipine 5 mg Tablet 5 mg PO DAILY RF: 0 aspirin [Aspir-81] 81 mg Tablet,Delayed Release (Dr/Ec) 81 mg PO DAILY RF: 0 lisinopril 10 mg Tablet 10 mg PO DAILY RF: 0 albuterol sulfate [Ventolin HFA] 90 mcg/actuation Hfa Aerosol Inhaler 2 puff INHALATION Q4-6H PRN (Reason: Shortness Of Breath) RF: 0 escitalopram oxalate [Lexapro] 10 mg Tablet 10 mg PO DAILY RF: 0 fluticasone furoate 100 mcg/actuation Blister With Device 2 inh INHALATION DAILY RF: 0 ipratropium-albuterol 0.5 mg-3 mg(2.5 mg base)/3 mL Solution For Nebulization 1 amp NEB Q4HR NEB PRN (Reason: wheeze, sob) RF: 0 potassium chloride [Klor-Con 10] 10 mEq Tablet Extended Release 10 meq PO BID RF: 0 Ambulatory Orders / Order Sets / DME: Walker With Front Wheels (1 each) (Routine) Location: Determined by Patient Ordered By: Angela Starks Referrals: Bran King MD [Physician] - See Instructions (Follow up in 2 weeks) Laurence Gillespie MD [Primary Care Provider] - See Instructions (Follow up in 1 week) Status ED Status: Left Department
--- NOTE | 2018-01-22 12:37 | P.CONOP ---
[facility] Orthopedics Consult Note - [facility] Consult date: 01/22/18 Requesting physician: Angela Starks Consult reason: fracture Chief complaint: R Tibial Plateau Fx Narrative: Chief Complaint: fall unable to bear weight History of Present Illness: This an 88-year-old female patient with past medical history which includes mild cognitive impairment, COPD, depression and peripheral vascular disease. Patient presented to [facility] for evaluation of right knee pain. She reports while getting into a vehicle she felt a "crack" and had immediate right knee pain and inability to bear weight. She reports since that time the knee has began to swell. She has significant pain in the anterior aspect of the knee. Unable to bear weight. Denies altered sensation or weakness of the lower extremity. There was no head injury loss of consciousness. Pain is slightly relieved with rest. I have been asked to see the patient in consultation regarding her right leg Review of Systems All other systems reviewed negative except as stated in [facility] - History History Provided By: Patient, Medical Record - Medical History Medical History: Medical History (Last Reviewed 01/22/18 @ 09:16 by Tristan Fuentes) Hypertension (Acute) CAD (coronary artery disease) COPD (chronic obstructive pulmonary disease) H/O: hysterectomy High cholesterol PVD (peripheral vascular disease) - Surgical History Surgical History: Surgical History (Last Reviewed 01/22/18 @ 09:16 by Tristan Fuentes) History of PTCA History of appendectomy History of tonsillectomy Hx of cataract surgery Hx of cholecystectomy - Family History Family History: Family History (Last Updated 10/24/17 @ 06:07 by Alan Melendez MD, PhD) Other Family history non-contributory - Tobacco History Second Hand Smoke Exposure: No Smoking Status: Never smoker Tobacco Type: Cigarettes Packs Per Day: 1 Years Smoked: 40 Smoking End Date: 1979 - Alcohol History How Often Do You Have a Drink Containing Alcohol: Never - Substance Use History Substance History: No History of Abuse - Travel History Recent Travel in the [place] Within the Last 8 Weeks: No Recent Travel Out of the Country Within the Last 8 Weeks: No - Immunization History Tetanus Immunization: Unsure Hx Influenza Vaccine This Season: Yes Medications and Allergies Active Medications: Active Medications Al Hydroxide/Mg Hydroxide (Milk Of Magnsanto Liq) 30 ml PO Q12H PRN PRN Reason: Mild Constipation Albuterol (Duoneb Neb (Prn)) 1 ampul NEB Q2HR NEB PRN PRN Reason: SHORTNESS OF BREATH/WHEEZING Amlodipine Besylate (Norvasc) 5 mg PO DAILY [facility] Last Admin: 01/22/18 08:47 Dose: 5 mg Aspirin (Ecotrin) 81 mg PO DAILY [facility] Last Admin: 01/22/18 08:48 Dose: 81 mg Clonidine HCl (Catapres) 0.2 mg PO Q6H PRN PRN Reason: SBP>160, DBP>90 Escitalopram Oxalate (Lexapro) 10 mg PO DAILY [facility] Last Admin: 01/22/18 08:47 Dose: 10 mg Fluticasone Propionate (Flovent Hfa 110 Mcg Inh) 2 puff INH DAILY [facility] Potassium Chloride/Sodium Chloride (Potassium Chlor 20 Meq/Nacl 0.45% Inj) 1, 000 mls @ 84 mls/hr IV.CONT .[id number] [facility] Stop: 01/22/18 19:03 Last Admin: 01/22/18 07:31 Dose: 84 mls/hr Lactated Ringer's (Lr 1000 Ml Inj) 1,000 mls @ 30 mls/hr IV.CONT .Q24H ONE Stop: 01/23/18 04:44 Sodium Chloride (Ns Inj) 500 mls @ 30 mls/hr IV.CONT .[id number] ONE Stop: 01/22/18 21:24 Ondansetron HCl (Zofran Inj) 4 mg IV.PUSH Q6H PRN PRN Reason: NAUSEA OR VOMITING Senna/Docusate Sodium (Silvia-Colace) 1 tab PO BID [facility] Last Admin: 01/22/18 08:47 Dose: 1 tab Allergies Allergy/AdvReac Type Severity Reaction Status Date / Time clarithromycin Allergy Severe unknown Verified 01/21/18 16:40 codeine Allergy Severe unknown Verified 01/21/18 16:40 acetaminophen Allergy Unknown unknown Verified 01/21/18 16:40 cilostazol Allergy Unknown uknown Verified 01/21/18 16:40 enalaprilat Allergy Unknown unknown Verified 01/21/18 16:40 hydrocodone Allergy Unknown unknown Verified 01/21/18 16:40 propoxyphene Allergy Unknown unknown Verified 01/21/18 16:40 tramadol Allergy Unknown unknown Verified 01/21/18 16:40 Home Medications Medication Instructions Recorded Confirmed Type albuterol sulfate [Ventolin HFA] 2 puff INHALATION Q4-6H PRN 10/23/17 01/21/18 History amlodipine 5 mg PO DAILY 10/23/17 01/21/18 History aspirin [Aspir-81] 81 mg PO DAILY 10/23/17 01/21/18 History escitalopram oxalate [Lexapro] 10 mg PO DAILY 10/23/17 01/21/18 History fluticasone furoate 2 inh INHALATION DAILY 10/23/17 01/21/18 History lisinopril 10 mg PO DAILY 10/23/17 01/21/18 History torsemide 10 mg PO DAILY 10/23/17 01/21/18 History Exam Vital signs: Vital Signs 01/21/18 16:40 01/21/18 17:06 01/21/18 19:42 Temperature 99.1 F Pulse Rate 76 72 78 Respiratory Rate 20 18 16 Blood Pressure 128/58 L 132/63 133/70 Pulse Oximetry 91 L 96 97 01/21/18 20:27 01/21/18 21:55 01/22/18 00:00 Temperature 98.8 F 98.6 F Pulse Rate 80 93 H 70 Respiratory Rate 16 20 20 Blood Pressure 136/77 169/72 H Pulse Oximetry 93 L 92 L 01/22/18 04:00 01/22/18 08:00 01/22/18 12:00 Temperature 99.2 F 100.2 F H 98.6 F Pulse Rate 72 73 69 Respiratory Rate 19 19 18 Blood Pressure 157/70 H 152/67 H 135/63 Pulse Oximetry 93 L 92 L 93 L Intake & Output 01/21/18 01/22/18 01/22/18 18:59 06:59 18:59 Output Total 250 / 250 Balance -250 / -250 Weight 79 kg 79 kg Output: Urine 250 / 250 Other: # Incontinent Voids 1 Date of Last Bowel Movement 01/21/18 Narrative: HEENT: Normocephalic atraumatic pupils equal round reactive. NECK: Supple. No abnormal masses. Full range of motion. CHEST: Clear to auscultation with no rales or rhonchi's or wheezes. HEART: Regular rate and rhythm. No murmurs. ABDOMEN: Soft, nontender, no masses. Normal active bowel sounds. GENITOURINARY: Deferred. MUSCULOSKELETAL: The right leg is in a splint. Overall alignment is satisfactory in full extension. No significant valgus deformity. Mild swelling. Minimal ecchymosis. Pain to palpation. Dorsalis pedis 1+. Sensation normal. She wiggles her toes. No calf tenderness Results - Labs Result Diagrams: 01/22/18 04:23 01/22/18 04:23 Labs: Laboratory Results - last 24 hr 01/22/18 01/22/18 01/22/18 04:23 04:23 04:23 WBC 6.2 RBC 4.32 Hgb 13.3 Hct 40.0 MCV 92.7 MCH 30.8 MCHC 33.2 RDW 12.9 Plt Count 176 MPV 7.6 Neut % (Auto) 68.6 Lymph % (Auto) 16.3 [place] % (Auto) 13.1 H Eos % (Auto) 1.1 Baso % (Auto) 0.9 Neut # (Auto) 4.3 Lymph # (Auto) 1.0 [place] # (Auto) 0.8 Eos # (Auto) 0.1 Baso # (Auto) 0.1 WBC Differential . Differential Comment Auto diff final PT INR APTT 27.5 Sodium 141 Potassium 3.9 Chloride 106 Carbon Dioxide 29.1 Anion Gap 6 BUN 18 Creatinine 0.85 Estimated GFR 63 L Random Glucose 95 Calcium 8.4 L 01/22/18 04:23 WBC RBC Hgb Hct MCV MCH MCHC RDW Plt Count MPV Neut % (Auto) Lymph % (Auto) [place] % (Auto) Eos % (Auto) Baso % (Auto) Neut # (Auto) Lymph # (Auto) [place] # (Auto) Eos # (Auto) Baso # (Auto) WBC Differential Differential Comment PT 10.7 INR 1.1 APTT Sodium Potassium Chloride Carbon Dioxide Anion Gap BUN Creatinine Estimated GFR Random Glucose Calcium - Diagnostic results Imaging: Impressions Chest X-Ray 01/21/18 00:00 CONCLUSION: Mild bibasilar atelectasis without perceptible pneumonia. Knee X-Ray 01/21/18 17:16 CONCLUSION: Mildly depressed fracture of the lateral tibial plateau with associated joint effusion. Knee CT 01/22/18 07:12 CONCLUSION: 1. Depressed lateral tibial plateau fracture. 2. Chondrocalcinosis. I have reviewed the x-ray and reviewed the CT of the right leg. There is evidence of a posterior depressed lateral tibial plateau fracture which appears to be depressed by about 5 or 6 mm on the sagittal CT scan. It looks worse on the regular x-ray. Assessment and Plan - Assessment and Plan Fracture right lateral tibial plateau, depressed. PLAN: I reviewed the CT of the right leg. It looks better than the original x-ray. Clinically her alignment looks fine. She mostly has a posterior depression but overall I think she has a good chance of doing well without surgical care. Nonsurgical treatment. Knee immobilizer. Nonweightbearing right leg. Follow-up in approximately 2 weeks. Repeat x-ray at that time. Delayed fixation may be necessary if this subsides further. I doubt that will happen. I discussed this with the nurse. She can be regular diet. Discharge plans can be initiated
[2018-01-22 17:19] VITALS: BP 141/65; PULSE 67; RESP 16; TEMP 98.5; O2SAT 98
== END 2018-01-22 19:49 ==
LOC: PHEFT 16:31 → INTOOBSV 19:10 → PHEDA 19:10 → N06 21:54
PROVIDERS: ADMIT Hospitalist; ATTEND Hospitalist